=== PATIENT | female | born 1935 | race Two or more races ===

== ENCOUNTER 2021-07-17 12:15 | Inpatient (IN) | payer OTHER ==
[~2021-07-17] VITALS: Ht 149.9 cm; Wt 72.6 kg
[2021-07-17] MEDS ORDERED: IRBESARTAN-HCT1 EACH PO (15:19)
[2021-07-17] MEDS ORDERED: PRILOSEC OTC20 MG PO (15:19)
[2021-07-17] MEDS ORDERED: METFORMIN HCL500 M3 PO (15:19)
[2021-07-17] MEDS ORDERED: HUMIRA40 MG/0.2 (15:19)
[2021-07-17] MEDS ORDERED: NABUMETONE500 MG PO (15:20)
[2021-07-17] MEDS ORDERED: ULTRAM50 MG PO (15:20)
[2021-07-17] MEDS ORDERED: SIMVASTATIN40 MG PO (15:20)
[2021-07-17] MEDS ORDERED: NEURONTIN300 MG PO (15:21)
[2021-07-17] MEDS ORDERED: ZETIA10 MG PO (15:21)
[2021-07-17] MEDS ORDERED: TREXALL5 MG PO (15:22)
[2021-07-17] MEDS ORDERED: MONTELUKAST SOD10 MG PO (15:22)
[2021-07-17] MEDS ORDERED: D3 + K2 DOTS 11 EACH PO (15:23)
[2021-07-22] MEDS ORDERED: PERCOCET 5-3251 EACH PO (08:21)
[2021-07-22] MEDS ORDERED: ECOTRIN325 M1 PO (08:21)
[2021-07-22] MEDS ORDERED: BACTRIM DS TAB1 EACH PO (08:21)
[2021-07-22] MEDS ORDERED: INTEGRA PLUS C1 EACH PO (08:21)
== END 2021-07-22 15:10 | DRG 483 ==
LOC: ADM 12:15 → SURH 07-21 08:23 → O/R 07-21 08:23 → EDSTATUS 07-21 12:15 → CIR.AMB 07-21 12:15 → SURH 07-21 12:15
PROVIDERS: ADMIT Orthopaedic Surgery Sports Medicine; ATTEND Orthopaedic Surgery Sports Medicine
PROC: 0LS30ZZ Reposition Right Upper Arm Tendon, Open Approach (ICD-10-PCS; 2021-07-21)
PROC: 0RRJ0JZ Replacement of Right Shoulder Joint with Synthetic Substitute, Open Approach (ICD-10-PCS; principal; 2021-07-21 12:15)
DX: M19.011 Primary osteoarthritis, right shoulder (principal); M65.811 Other synovitis and tenosynovitis, right shoulder; Z20.822 Contact with and (suspected) exposure to COVID-19; I10 Essential (primary) hypertension